=== PATIENT | female | born 1955 | race Caucasian/White ===

== ENCOUNTER 2018-08-19 12:04 | Emergency (ER) | payer OTHER ==
[~2018-08-19] VITALS: Ht 157.5 cm; Wt 69.4 kg
[2018-08-19 12:23] VITALS: Ht 157.5 cm; Wt 69.4 kg
[2018-08-19 13:21] LABS: CALCIUM 8.8 mg/dL (8.5-10.1); CARBON DIOXIDE 28.1 mmol/L (21-32); CHLORIDE SERUM 104 mmol/L (98-107); CREATININE SERUM 0.6 mg/dL (0.6-1.0); GFR1 > 60 mL/min; GLUCOSE SERUM 92 mg/dL (74-106); POTASSIUM SERUM 3.8 mmol/L (3.5-5.1); SODIUM SERUM 140 mmol/L (136-145)
[2018-08-19 13:25] LABS: ALBUMIN 3.7 g/dL (3.4-5.0); ALKALINE PHOSPHATASE 36 U/L (46-116); ALT/SGPT 18 U/L (14-59); AST/SGOT 16 U/L (15-37); HDL CHOLESTEROL 56 mg/dL (40-60); LIPASE 105 IU/L (73-393); TOTAL PROTEIN, SERUM 7.1 g/dL (6.4-8.2); TRIGLYCERIDES 137 mg/dL (<150)
[2018-08-19 13:29] LABS: CHOLESTEROL 212 mg/dL (<200); CHOLESTEROL/HDL RATIO 3.8
[2018-08-19 13:32] LABS: FREE T4 0.97 ng/dL (0.76-1.46); FREE THYROXINE INDEX 2.7 ug/dL (1.4-4.5); T4(THYROXINE) 8.8 ug/dL (4.7-13.3)
[2018-08-19 13:45] LABS: microscopic required? YES; urine erythrocyte TRACE (NEGATIVE)
[2018-08-19 14:13] LABS: T3 TOTAL 1.17 ng/mL
[2018-08-19 14:22] LABS: BASOPHIL % 0.5 % (0-2); PLATELET COUNT 192 x10^3mcL (130-400); RED CELL DISTRIBUTION WIDTH 12.2 % (11.5-14.5)
[2018-08-19 17:13] VITALS: BP 154/61
== END 2018-08-19 17:14 | disposition home or self-care (01) ==
LOC: ED 12:04
PROVIDERS: Specialist
DX: R07.89 Other chest pain (principal); R06.02 Shortness of breath; J45.909 Unspecified asthma, uncomplicated; F41.9 Anxiety disorder, unspecified; Z88.2 Allergy status to sulfonamides; Z90.49 Acquired absence of other specified parts of digestive tract; Z90.710 Acquired absence of both cervix and uterus
CPT/HCPCS: 83880; 84439; J7030; Q0092; Q9967

== ENCOUNTER → 2019-02-11 | Outpatient (CLI) | payer OTHER ==
[2019-02-11 09:16] LABS: BASOPHIL % 0.6 % (0-2); PLATELET COUNT 198 x10^3mcL (130-400); RED CELL DISTRIBUTION WIDTH 12.8 % (11.5-14.5)
[2019-02-11 09:26] LABS: ALBUMIN 3.6 g/dL (3.4-5.0); ALKALINE PHOSPHATASE 38 U/L (46-116); ALT/SGPT 16 U/L (14-59); AST/SGOT 13 U/L (15-37); BILIRUBIN TOTAL 0.7 mg/dL (0.20-1.00); CALCIUM 8.3 mg/dL (8.5-10.1); CHLORIDE SERUM 107 mmol/L (98-107); CHOLESTEROL 229 mg/dL (<200); CHOLESTEROL/HDL RATIO 3.8; CREATININE SERUM 0.7 mg/dL (0.6-1.0); GFR1 > 60 mL/min; GLUCOSE SERUM 83 mg/dL (74-106); HDL CHOLESTEROL 60 mg/dL (40-60); SODIUM SERUM 143 mmol/L (136-145); TOTAL PROTEIN, SERUM 7.2 g/dL (6.4-8.2); TRIGLYCERIDES 73 mg/dL (<150)
[2019-02-11 09:37] LABS: UA SPECIFIC GRAVITY >=1.030 (1.005-1.035); microscopic required? YES; urine erythrocyte TRACE (NEGATIVE)
== END | disposition home or self-care (01) ==
LOC: MA 08:41
PROVIDERS: General Practice
PROC: BH02ZZZ Plain Radiography of Bilateral Breasts (ICD-10-PCS; principal; 2019-02-11)
DX: Z12.31 Encounter for screening mammogram for malignant neoplasm of breast (principal)
CPT/HCPCS: 77067

== ENCOUNTER → 2020-04-09 | Outpatient (CLI) | payer OTHER ==
[2020-04-09 08:03] LABS: BASOPHIL % 0.7 % (0-2); PLATELET COUNT 183 x10^3mcL (130-400); RED CELL DISTRIBUTION WIDTH 12.3 % (11.5-14.5)
[2020-04-09 08:25] LABS: ALBUMIN 3.8 g/dL (3.4-5.0); ALKALINE PHOSPHATASE 38 U/L (46-116); ALT/SGPT 19 U/L (14-59); AST/SGOT 17 U/L (15-37); BILIRUBIN TOTAL 0.8 mg/dL (0.20-1.00); CALCIUM 9.1 mg/dL (8.5-10.1); CARBON DIOXIDE 29.9 mmol/L (21-32); CHLORIDE SERUM 103 mmol/L (98-107); CHOLESTEROL 247 mg/dL (<200); CHOLESTEROL/HDL RATIO 4.5; CREATININE SERUM 0.7 mg/dL (0.6-1.0); GFR1 > 60 mL/min; GLUCOSE SERUM 91 mg/dL (74-106); HDL CHOLESTEROL 55 mg/dL (40-60); SODIUM SERUM 137 mmol/L (136-145); TRIGLYCERIDES 130 mg/dL (<150)
== END | disposition home or self-care (01) ==
LOC: LB 07:10
PROVIDERS: ATTEND General Practice
DX: R10.2 Pelvic and perineal pain (principal); M54.5 Low back pain